=== PATIENT | female | born 1965 | race Caucasian/White ===

== ENCOUNTER 2019-01-04 13:40 | Observation (INO) ==
[2019-01-04] MEDS ORDERED: PROCALAMINE 3 % 1,000 ML IV SCH (18:37)
--- NOTE | 2019-01-04 19:03 | RAD ---
HISTORY: Failure to thrive, weakness Study: PA and lateral views of the chest Comparison:None Findings: No infiltrate, effusion or pneumothorax identified. The cardiac and mediastinal contours are within normal limits. The soft tissues are unremarkable. IMPRESSION: 1. No acute cardiopulmonary abnormality. Reported By:
[2019-01-04 19:09] LABS: BASOPHILS % (AUTO) 0.3 % (0.2-1.0); EOSINOPHILS % (AUTO) 0.1 % (0.9-2.9); HEMATOCRIT 36.4 % (36.0-47.0); HEMOGLOBIN 12.5 g/dL (12.0-16.0); LYMPHOCYTES # (AUTO) 1.2 X10^3/uL (1.3-2.9); LYMPHOCYTES % (AUTO) 17.3 % (21.0-51.0); MEAN CORPUSCULAR HEMOGLOBIN 30.6 pg (27.0-34.0); MEAN CORPUSCULAR HGB CONC 34.2 g/dL (33.0-35.0); MEAN CORPUSCULAR VOLUME 89.5 fL (80.0-100.0); MEAN PLATELET VOLUME 9.2 fL (7.4-11.0); MONOCYTES # (AUTO) 0.4 x10^3/uL (0.3-0.8); MONOCYTES % (AUTO) 5.1 % (0.0-13.0); NEUTROPHILS # (AUTO) 5.3 x10^3/uL (2.2-4.8); NEUTROPHILS % (AUTO) 77.2 % (42.0-75.0); PLATELET COUNT 227 X10^3/uL (150.0-450.0); RED BLOOD COUNT 4.06 X10^6/uL (3.5-5.4); RED CELL DISTRIBUTION WIDTH 12.9 % (11.6-16.5); WHITE BLOOD COUNT 6.9 X10^3/uL (3.6-10.0)
[2019-01-04 19:26] LABS: ALANINE AMINOTRANSFERASE 16 Units/L (12-78); ALBUMIN 4.2 g/dL (3.4-5.0); ALKALINE PHOSPHATASE 69 Units/L (46-116); ASPARTATE AMINO TRANSFERASE 13 Units/L (15-37); BLOOD UREA NITROGEN 14 mg/dL (7-18); CALCIUM 9.3 mg/dL (8.5-10.1); CARBON DIOXIDE 28.8 mmol/L (21-32); CHLORIDE 104 mmol/L (98-107); CREATININE 0.84 mg/dL (0.55-1.02); SODIUM 142 mmol/L (136-145); eGFR NON BLACK RACES > 60 (>60)
[2019-01-04] MEDS: NS 1000 ML 1,000 ML IV SCH (20:34)
[2019-01-04] MEDS: ALBUMIN HUMAN 25%- 100 ML 100 ML IV SCH (20:35)
[2019-01-04] MEDS ORDERED: M.S. CONTIN 30 MG EXTENDED RELEASE PO PRN (20:57)
[2019-01-04] MEDS ORDERED: MILK OF MAGNESIA PO PRN (20:59)
[2019-01-04] MEDS ORDERED: COLACE CAP 100 MG PO PRN (20:59)
[2019-01-04] MEDS ORDERED: MICRO K EXTEN CAP 10 MEQ PO PRN (21:57)
[2019-01-04] MEDS ORDERED: K-DUR TAB 20 MEQ PO PRN (21:57)
[2019-01-04] MEDS ORDERED: MAGNESIUM SULFATE 1 GRAM/100 mL PREMIX 1 GM/100 ML BAG IV PRN (21:57)
[2019-01-04] MEDS ORDERED: POTASSIUM CHL 40 MEQ/NS 0.45% 500 ML IV PRN (21:57)
[2019-01-04] MEDS ORDERED: POTASSIUM CHL 60 MEQ/NS 0.45% 500 ML IV PRN (21:57)
[2019-01-04] MEDS ORDERED: KLOR-CON PO PRN (21:57)
[2019-01-04] MEDS ORDERED: POTASSIUM CHLORIDE LIQ 20 MEQ UDC PO PRN (21:57)
[2019-01-04] MEDS: DILAUDID INJ IVP PRN (21:57)
[2019-01-04] MEDS: PHENERGAN INJ 25 MG IM PRN (22:01)
[2019-01-04] MEDS: K-RIDER 10 MEQ/NS 100 ML 10 MEQ/100 ML BAG IV PRN ×2 (23:12→23:50)
[2019-01-04] MEDS: PROCALAMINE 3 % 1,000 ML IV SCH (23:20)
[2019-01-04 23:39] LABS: BILIRUBIN,URINE NEGATIVE (NEGATIVE); BLOOD/HEMOGLOBIN,URINE NEGATIVE (NEGATIVE); GLUCOSE, URINE NEGATIVE (NEGATIVE); KETONES,URINE NEGATIVE (NEGATIVE); LEUKOCYTE ESTERASE ,URINE NEGATIVE (NEGATIVE); NITRITES,URINE NEGATIVE (NEGATIVE); PH,URINE 6.5 (5.0 - 8.0); PROTEIN,URINE 1+ (NEGATIVE); UROBILINOGEN,URINE NORMAL (NORMAL)
[2019-01-04 23:44] LABS: AMORPHOUS SEDIMENT,UR TRACE /HPF (NEGATIVE); APPEARANCE,URINE CLEAR (CLEAR); BACTERIA,URINE NEGATIVE /HPF (NEGATIVE); COLOR,URINE YELLOW (YELLOW); MUCUS,URINE FEW /HPF (NEGATIVE); RBC,URINE NONE SEEN /HPF (NONE SEEN); SQUAMOUS EPITHELIAL CELL,UR MODERATE /HPF (NEGATIVE)
[2019-01-05] MEDS: K-RIDER 10 MEQ/NS 100 ML 10 MEQ/100 ML BAG IV PRN ×4 (00:49→03:34)
[2019-01-05] MEDS: DILAUDID INJ IVP PRN ×5 (02:45→23:49)
[2019-01-05] MEDS: PHENERGAN INJ 25 MG IM PRN ×2 (06:03→14:38)
[2019-01-05 07:11] LABS: BASOPHILS % (AUTO) 0.3 % (0.2-1.0); EOSINOPHILS % (AUTO) 0.2 % (0.9-2.9); HEMATOCRIT 34.3 % (36.0-47.0); HEMOGLOBIN 11.7 g/dL (12.0-16.0); LYMPHOCYTES # (AUTO) 1.3 X10^3/uL (1.3-2.9); LYMPHOCYTES % (AUTO) 17.2 % (21.0-51.0); MEAN CORPUSCULAR HEMOGLOBIN 30.6 pg (27.0-34.0); MEAN CORPUSCULAR HGB CONC 34.1 g/dL (33.0-35.0); MEAN CORPUSCULAR VOLUME 89.5 fL (80.0-100.0); MEAN PLATELET VOLUME 9.3 fL (7.4-11.0); MONOCYTES # (AUTO) 0.6 x10^3/uL (0.3-0.8); MONOCYTES % (AUTO) 7.6 % (0.0-13.0); NEUTROPHILS # (AUTO) 5.8 x10^3/uL (2.2-4.8); NEUTROPHILS % (AUTO) 74.7 % (42.0-75.0); PLATELET COUNT 204 X10^3/uL (150.0-450.0); RED BLOOD COUNT 3.83 X10^6/uL (3.5-5.4); RED CELL DISTRIBUTION WIDTH 13.1 % (11.6-16.5); WHITE BLOOD COUNT 7.7 X10^3/uL (3.6-10.0)
[2019-01-05 07:16] LABS: AMYLASE 17 Units/L (25-115); LIPASE 86 Units/L (73-393)
[2019-01-05 07:21] LABS: ALANINE AMINOTRANSFERASE 15 Units/L (12-78); ALBUMIN 4.1 g/dL (3.4-5.0); ALKALINE PHOSPHATASE 59 Units/L (46-116); ASPARTATE AMINO TRANSFERASE 15 Units/L (15-37); BLOOD UREA NITROGEN 12 mg/dL (7-18); CALCIUM 9.2 mg/dL (8.5-10.1); CARBON DIOXIDE 28.7 mmol/L (21-32); CHLORIDE 104 mmol/L (98-107); CREATININE 0.62 mg/dL (0.55-1.02); SODIUM 140 mmol/L (136-145); TOTAL PROTEIN 6.7 g/dL (6.4-8.2); eGFR NON BLACK RACES > 60 (>60)
[2019-01-05 08:22] VITALS: BMI 17.5
--- NOTE | 2019-01-05 08:55 | DR.UPDATE ---
H&P Update History and Physical Update: WAS SEEN I THE OFFICE BY GARY SPENCER TODAY FOR COMPLAINTS OF EXCESSIVE WEIGHT LOSS, ABDOMINAL PAIN, AND DEGCREASED APITITE. SHE REPORTS CONSTIPATION, NAUSEA, AND VOMITING. SHE WAS ADMITTED FOR FURTHER EVALUATION AND TREATMENT OF FAILURE TO THRIVE, WEIGHT LOSS, AND ABDOMINAL PAIN. A H&P WAS COMPLETED PRIOR TO ADMISSION. SHE WILL BE STARTED ON IV FLUIDS, IV PROCALAMINE, AND ALBUMIN 25% IV DAILY. PATIENT HAS BEEN SEEN AND EXAMINED WITH NO CHANGES NOTED TO H&P.
[2019-01-05] MEDS: ALBUMIN HUMAN 25%- 100 ML 100 ML IV SCH (09:15)
--- NOTE | 2019-01-05 11:18 | RAD ---
History: Abdominal pain Study: KUB Comparison: October 21, 2018 Findings: There is a prominent amount of fecal material in the colon. There is no small bowel distention. No abnormal calcification is demonstrated. There are degenerative changes in the lower lumbar spine. Impression: No acute disease suggested Reported By:
[2019-01-05] MEDS: MILK OF MAGNESIA PO SCH ×2 (11:23→23:10)
[2019-01-05] MEDS: COLACE CAP 100 MG PO SCH ×2 (11:24→20:26)
[2019-01-05] MEDS: FLEXERIL TAB 10 MG PO SCH ×2 (11:26→20:42)
[2019-01-05] MEDS: NS 1000 ML 1,000 ML IV SCH (20:05)
--- NOTE | 2019-01-05 22:37 | PCM.PROG ---
Progress Note - Progress Note for Day of Date of Exam: 01/05/19 - Subjective Subjective: WAS ADMITTED FOR DEHYDRATION, FAILURE TO THRIVE, AND WEIGHT LOSS. TODAY, SHE IS SITTING ON THE BEDSIDE COMMODE ON MORNING ROUNDS. SHE REPORTS SEVERE, DIFFUSE PAIN TO THE ABDOMEN. ON EXAMINATION, HEART IS REGULAR IN RATE AND RHYTHM. BILATERAL LUNGS ARE NOTED WITH DIMINISHED LUNG SOUNDS THROUGHOUT. ABDOMEN IS FLAT, SOFT, AND NOTED WITH DIFFUSE TENDERNESS TO PALPATION. SHE DENIES A BOWEL MOVEMENT IN SEVERAL DAYS. HER VITALS THIS MORNING ARE 98.8-52-20-95%-148/65. LABS WERE OBTAINED. ABNORMAL LAB VALUES INCLUDE THE FOLLOWING: HGB 11.7, HCT 34.3, GLUCOSE 109, AMYLASE 17. A KUB WAS OBTAINED THIS MORNING AND REVEALED A PROMINENT AMOUNT OF FECAL MATERIAL IN THE COLON. OTHERWISE, NO ACUTE DISEASE SUGGESTED. SHE IS RECEIVING A BOWEL REGIMEN. TODAY, WE WILL ADD A FENTANYL 25MCG/HR TD PATCH. OTHERWISE, WE WILL CONTINUE WITH CURRENT PLAN OF CARE. WE PLAN TO FOLLOW UP WITH AM LABS AND CONTINUE TO MONITOR. - Past Medical Family Social History Past Med/Fam/Surg Hx: No changes since H&P Allergies: Allergies metronidazole [From Flagyl] Allergy (Verified 01/04/19 19:42) - Review of Systems ROS: No change since H&P - Vital Signs and I&O's Vital Signs: Temperature 98.0 F Pulse Rate [Left Radial] 62 Respiratory Rate 18 Blood Pressure [Right Arm] 149/71 O2 Sat by Pulse Oximetry 100 Intake and Output: Intake & Output 01/03/19 01/04/19 01/05/19 01/06/19 11:59 11:59 11:59 11:59 Intake Total 1200 / 1200 Output Total 75 / 75 Balance 1125 / 1125 - Physical Exam Oriented: Normal Eyes: Normal Ear: Normal Nose: Normal Throat: Normal Respiratory: Generalized, Diminished Cardiovascular: Normal : Normal Auscultation: Bowel Sounds: Normal Palpation: Normal Tenderness: Diffuse, Moderate. negative: Rebound, Guarding, Rigidity Skin: Normal Musculoskeletal: Normal Psychiatric: Normal Mood Description: Calm Affect: Normal Speech Pattern: Clear, Appropriate - Laboratory and Diagnostics Result Diagrams: 01/05/19 07:00 01/05/19 07:00 Labs: Laboratory WBC 7.7 X10^3/uL (3.6-10.0) 01/05/19 07:00 RBC 3.83 X10^6/uL (3.5-5.4) 01/05/19 07:00 Hgb 11.7 g/dL (12.0-16.0) L 01/05/19 07:00 Hct 34.3 % (36.0-47.0) L 01/05/19 07:00 MCV 89.5 fL (80.0-100.0) 01/05/19 07:00 MCH 30.6 pg (27.0-34.0) 01/05/19 07:00 MCHC 34.1 g/dL (33.0-35.0) 01/05/19 07:00 RDW 13.1 % (11.6-16.5) 01/05/19 07:00 Plt Count 204 X10^3/uL (150.0-450.0) 01/05/19 07:00 MPV 9.3 fL (7.4-11.0) 01/05/19 07:00 Neut % (Auto) 74.7 % (42.0-75.0) 01/05/19 07:00 Lymph % (Auto) 17.2 % (21.0-51.0) L 01/05/19 07:00 [place] % (Auto) 7.6 % (0.0-13.0) 01/05/19 07:00 Eos % (Auto) 0.2 % (0.9-2.9) L 01/05/19 07:00 Baso % (Auto) 0.3 % (0.2-1.0) 01/05/19 07:00 Neut # (Auto) 5.8 x10^3/uL (2.2-4.8) H 01/05/19 07:00 Lymph # (Auto) 1.3 X10^3/uL (1.3-2.9) 01/05/19 07:00 [place] # (Auto) 0.6 x10^3/uL (0.3-0.8) 01/05/19 07:00 Eos # (Auto) 0.0 x10^3/uL (0.0-0.2) 01/05/19 07:00 Baso # (Auto) 0.0 X10^3/uL (0.0-0.1) 01/05/19 07:00 Absolute Nucleated RBC 0.0 /100WBC 01/05/19 07:00 Sodium 140 mmol/L (136-145) 01/05/19 07:00 Corrected Sodium TNP 01/05/19 07:00 Potassium 3.7 mmol/L (3.5-5.1) 01/05/19 07:00 Chloride 104 mmol/L (98-107) 01/05/19 07:00 Carbon Dioxide 28.7 mmol/L (21-32) 01/05/19 07:00 BUN 12 mg/dL (7-18) 01/05/19 07:00 Creatinine 0.62 mg/dL (0.55-1.02) 01/05/19 07:00 Est GFR (MDRD) Af Amer > 60 (>60) 01/05/19 07:00 Est GFR (MDRD) Non-Af > 60 (>60) 01/05/19 07:00 Glucose 109 mg/dL (65-99) H 01/05/19 07:00 Calcium 9.2 mg/dL (8.5-10.1) 01/05/19 07:00 Corrected Calcium TNP 01/05/19 07:00 Magnesium 2.0 mg/dL (1.7-2.9) 01/04/19 18:50 Total Bilirubin 0.50 mg/dL (0.2-1.0) 01/05/19 07:00 AST 15 Units/L (15-37) 01/05/19 07:00 ALT 15 Units/L (12-78) 01/05/19 07:00 Alkaline Phosphatase 59 Units/L (46-116) 01/05/19 07:00 Total Protein 6.7 g/dL (6.4-8.2) 01/05/19 07:00 Albumin 4.1 g/dL (3.4-5.0) 01/05/19 07:00 Globulin 2.6 g/dL (2.5-4.5) 01/05/19 07:00 Albumin/Globulin Ratio 1.6 Ratio (1.1-2.1) 01/05/19 07:00 Amylase 17 Units/L (25-115) L 01/05/19 07:00 Lipase 86 Units/L (73-393) 01/05/19 07:00 Specimen Type Clean catch urine 01/04/19 23:20 Urine Color Yellow (YELLOW) 01/04/19 23:20 Urine Appearance Clear (CLEAR) 01/04/19 23:20 Urine pH 6.5 (5.0 - 8.0) 01/04/19 23:20 Ur Specific [place] 1.015 (1.000-1.030) 01/04/19 23:20 Urine Protein 1+ (NEGATIVE) 01/04/19 23:20 Urine Glucose (UA) Negative (NEGATIVE) 01/04/19 23:20 Urine Ketones Negative (NEGATIVE) 01/04/19 23:20 Urine Occult Blood Negative (NEGATIVE) 01/04/19 23:20 Urine Nitrite Negative (NEGATIVE) 01/04/19 23:20 Urine Bilirubin Negative (NEGATIVE) 01/04/19 23:20 Urine Urobilinogen Normal (NORMAL) 01/04/19 23:20 Ur Leukocyte Esterase Negative (NEGATIVE) 01/04/19 23:20 Urine RBC None seen /HPF (NONE SEEN) 01/04/19 23:20 Urine WBC None seen /HPF (NONE SEEN) 01/04/19 23:20 Ur Squamous Epith Cells Moderate /HPF (NEGATIVE) 01/04/19 23:20 Amorphous Sediment Trace /HPF (NEGATIVE) 01/04/19 23:20 Urine Bacteria Negative /HPF (NEGATIVE) 01/04/19 23:20 Urine Mucus Few /HPF (NEGATIVE) 01/04/19 23:20 Ur Culture Indicated? No/not indicated 01/04/19 23:20
[2019-01-05] MEDS: PROCALAMINE 3 % 1,000 ML IV SCH (23:49)
[2019-01-06] MEDS: PHENERGAN INJ 25 MG IM PRN ×2 (03:04→09:04)
[2019-01-06] MEDS: DILAUDID INJ IVP PRN ×2 (03:53→08:55)
[2019-01-06 05:03] LABS: BASOPHILS % (AUTO) 0.3 % (0.2-1.0); EOSINOPHILS # (AUTO) 0.1 x10^3/uL (0.0-0.2); EOSINOPHILS % (AUTO) 1.1 % (0.9-2.9); HEMOGLOBIN 11.9 g/dL (12.0-16.0); LYMPHOCYTES # (AUTO) 1.2 X10^3/uL (1.3-2.9); LYMPHOCYTES % (AUTO) 20.2 % (21.0-51.0); MEAN CORPUSCULAR HEMOGLOBIN 30.7 pg (27.0-34.0); MEAN CORPUSCULAR HGB CONC 34.1 g/dL (33.0-35.0); MEAN PLATELET VOLUME 9.5 fL (7.4-11.0); MONOCYTES # (AUTO) 0.4 x10^3/uL (0.3-0.8); NEUTROPHILS # (AUTO) 4.2 x10^3/uL (2.2-4.8); NEUTROPHILS % (AUTO) 71.4 % (42.0-75.0); PLATELET COUNT 200 X10^3/uL (150.0-450.0); RED BLOOD COUNT 3.89 X10^6/uL (3.5-5.4); RED CELL DISTRIBUTION WIDTH 12.7 % (11.6-16.5); WHITE BLOOD COUNT 5.8 X10^3/uL (3.6-10.0)
[2019-01-06 05:19] LABS: ALANINE AMINOTRANSFERASE 15 Units/L (12-78); ALBUMIN 4.2 g/dL (3.4-5.0); ALKALINE PHOSPHATASE 52 Units/L (46-116); AMYLASE 16 Units/L (25-115); ASPARTATE AMINO TRANSFERASE 17 Units/L (15-37); BLOOD UREA NITROGEN 11 mg/dL (7-18); CALCIUM 8.9 mg/dL (8.5-10.1); CARBON DIOXIDE 27.9 mmol/L (21-32); CHLORIDE 103 mmol/L (98-107); LIPASE 72 Units/L (73-393); SODIUM 140 mmol/L (136-145); TOTAL PROTEIN 6.7 g/dL (6.4-8.2); eGFR NON BLACK RACES > 60 (>60)
[2019-01-06] MEDS: ALBUMIN HUMAN 25%- 100 ML 100 ML IV SCH (08:41)
[2019-01-06] MEDS: FLEXERIL TAB 10 MG PO SCH (08:44)
[2019-01-06] MEDS ORDERED: MIRALAX POWDER (1 DOSE 17 G) PO SCH (09:00)
[2019-01-06 10:31] VITALS: BP 121/72
[2019-01-06] MEDS: MILK OF MAGNESIA PO SCH (13:10)
[2019-01-06] MEDS: COLACE CAP 100 MG PO SCH (13:10)
[2019-01-06] MEDS ORDERED: DILAUDID INJ IM NR (13:12)
[2019-01-06] MEDS ORDERED: ZOFRAN TAB 4 MG PO PRN (13:13)
[2019-01-06] MEDS ORDERED: ZOFRAN TAB 4 MG ONE (13:19)
== END 2019-01-06 13:40 | disposition home or self-care (01) ==
LOC: MED/SURG
PROVIDERS: ADMIT Internal Medicine; ATTEND Internal Medicine
DX: R62.7 Adult failure to thrive; R11.2 Nausea with vomiting, unspecified; R63.4 Abnormal weight loss; R26.89 Other abnormalities of gait and mobility; E87.6 Hypokalemia; R10.84 Generalized abdominal pain; K59.09 Other constipation; E86.0 Dehydration; R13.11 Dysphagia, oral phase
CPT/HCPCS: 36415; 71020; 71046; 74000; 74018; 80053; 81001; 82150; 83690; 83735; 85025; 94760; 96367; 96374; 97116; 97163; 97166; 97530; A4216; A4222; B5200; P9047; G0378; J1170; J2550; J3480; J7030